=== PATIENT | female | born 1960 | race Caucasian/White ===

== ENCOUNTER 2017-11-26 00:38 | Emergency (ER) | payer SELFPAY ==
[~2017-11-26 00:38] MED LIST: ADDE30TA PO; TRAM50 PO
[2017-11-26 00:45] VITALS: BP 144/79; PULSE 98; RESP 16; TEMP 98.4; O2SAT 98
[2017-11-26] MEDS ORDERED: ABIL20TA5 PO (00:52)
[2017-11-26] MEDS ORDERED: PAXI10TA8 PO (00:52)
[2017-11-26] MEDS ORDERED: ADDE30TA PO (00:52)
--- NOTE | 2017-11-26 01:40 | PD ---
HPI Chief Complaint: Skin Problem Time Seen by Provider: 01:33 Travel History International Travel<30 days: No Contact w/Intl Traveler<30days: No Traveled to known affect area: No History of Present Illness HPI 57-year-old female presents for evaluation of 2 separate problems. Her first problem is chronic rash bilateral feet. Symptoms started 3 or 4 months ago on the plantar aspect of both feet. She reports dry flaky itchy and irritated skin. She was seen at a urgent care clinic 1 month ago where she was prescribed oral terbanifine benefiting as well as econazole nitrate however she reports that her symptoms have not improved. She reports that the econazole cream irritated her skin and so she does not use it much. Denies any history of eczema, psoriasis. In addition the patient is complaining of dysuria and increased urinary frequency which is been going on for the past 2 weeks. No aggravating or relieving factors. Denies abdominal pain, nausea or vomiting, flank pain, fevers or chills. No other complaints. [facility] Past Medical History ADD: Yes Social History Alcohol Use: No Tobacco Use: Yes (<1 PPD) Substance Use: No Allergies-Medications (Allergen,Severity, Reaction): Coded Allergies: No Known Allergies (Verified Adverse Reaction, Unknown, 11/26/17) Reported Meds & Prescriptions Reported Meds & Active Scripts Active Triamcinolone Topical (Triamcinolone Acetonide) 0.1% Cream 1 Applic TOPICAL BID 14 Days Clotrimazole Topical (Clotrimazole) 1% Soln 1 Applic TOPICAL BID 28 Days Bactrim DS (Sulfamethoxazole-Trimethoprim) 800-160 Mg Tab 1 Tab PO BID Reported Paxil (Paroxetine HCl) 10 Mg Tab 20 Mg PO DAILY Abilify (Aripiprazole) 20 Mg Tab 20 Mg PO DAILY Adderall (Amphetamine-Dextroamphetamine) 30 Mg Tab 30 Mg PO TID Avoid late evening doses. Space doses at least 4 to 6 hours if more than once/day dosing. Review of Systems Except as stated in HPI: all other systems reviewed are Neg Physical Exam Narrative GENERAL: Well-developed well-nourished female no acute distress SKIN: Warm and dry. Circular area of dry patchy irritated skin on the plantar aspect of both feet. There is no erythema or induration, no vesicles, no pustules, no petechiae, no purpura HEAD: Atraumatic. Normocephalic. EYES: Pupils equal and round. No scleral icterus. No injection or drainage. ENT: No nasal bleeding or discharge. Mucous membranes pink and moist. NECK: Trachea midline. No JVD. CARDIOVASCULAR: Regular rate and rhythm. No murmur appreciated. RESPIRATORY: No accessory muscle use. Clear to auscultation. Breath sounds equal bilaterally. GASTROINTESTINAL: Abdomen soft, non-tender, nondistended. Hepatic and splenic margins not palpable. MUSCULOSKELETAL: No obvious deformities. Data Data Last Documented VS Vital Signs Date Time Temp Pulse Resp B/P (MAP) Pulse Ox O2 Delivery O2 Flow Rate FiO2 11/26/17 00:45 98.4 98 16 144/79 (100) 98 Room Air Orders Orders Urinalysis - C+S If Indicated (11/26/17 01:37) Urine Culture (11/26/17 01:50) Ed Discharge Order (11/26/17 03:28) Labs Laboratory Tests Test 11/26/17 01:50 Urine Color YELLOW Urine Turbidity CLEAR Urine pH 6.0 Urine Specific [place] 1.026 Urine Protein TRACE mg/dL Urine Glucose (UA) NEG mg/dL Urine Ketones NEG mg/dL Urine Occult Blood TRACE Urine Nitrite NEG Urine Bilirubin NEG Urine Urobilinogen 2.0 MG/DL Urine Leukocyte Esterase MOD Urine RBC 16 /hpf Urine WBC 6 /hpf Urine Squamous Epithelial Cells 6 /hpf Urine Bacteria MANY /hpf Urine Mucus FEW /lpf Microscopic Urinalysis Comment CULTURE INDICATED MDM Medical Decision Making Medical Screen Exam Complete: Yes Emergency Medical Condition: Yes Medical Record Reviewed: Yes Differential Diagnosis Tinea pedis versus atopic dermatitis versus impetigo versus psoriasis Cystitis versus urethritis versus pyelonephritis Narrative Course The patient has a dry flaky itchy rash on the plantar aspect of both feet for several months of unknown etiology. She has not improved with the use of oral and topical antifungals. The plan would be to have her follow-up with a tennis coach for biopsy if symptoms do not persist. She will be given a prescription for a week or antifungal cream as well as topical steroid cream. In addition the patient has symptoms that would be suggestive of UTI. Urinalysis is consistent with UTI. The patient will be discharged with Bactrim. Diagnosis Primary Impression: Rash Additional Impression: UTI (urinary tract infection) Additional Instructions: Medication as prescribed. Follow-up with a tennis coach for definitive diagnosis. Return for any emergent medical conditions. Med/Other Pt SpecificInfo: Prescription(s) given Scripts Triamcinolone Topical (Triamcinolone Topical) 0.1% Cream 1 APPLIC TOPICAL BID for Inflammation for 14 Days, GM 0 Refills Prov: Oscar Layton MD 11/26/17 Clotrimazole Topical (Clotrimazole Topical) 1% Soln 1 APPLIC TOPICAL BID for Fungal Infection for 28 Days, #30 ML 0 Refills Prov: Oscar Layton MD 11/26/17 Sulfamethoxazole-Trimethoprim (Bactrim DS) 800-160 Mg Tab 1 TAB PO BID for Infection, #20 TAB 0 Refills Prov: Oscar Layton MD 11/26/17 Disposition: 01 DISCHARGE HOME Condition: Stable Osiel Avery Nov 26, 2017 01:40
[2017-11-26 02:20] LABS: BACTERIA, URINE MANY /hpf; BILIRUBIN, URINE NEG (NEG); BLOOD, URINE TRACE (NEG); GLUCOSE,URINE NEG (NEG); KETONE, URINE NEG (NEG); MUCUS URINE FEW /lpf (OCC); NITRITE,URINE NEG (NEG); SQUAMOUS EPITHELIAL CELL URINE 6 /hpf (0-5); URINE COLOR YELLOW (YELLW/STRAW); URINE LEUKOCYTE ESTERASE MOD (NEG)
[2017-11-26] MEDS ORDERED: BACT800T5 PO (03:25)
[2017-11-26] MEDS ORDERED: CLOTR1%T TOPICAL (03:25)
[2017-11-26] MEDS ORDERED: TRIA.1%T TOPICAL (03:25)
== END 2017-11-26 03:47 | disposition home or self-care (01) ==
LOC: NEPD 00:38
DX: R21 Rash and other nonspecific skin eruption (principal); N39.0 Urinary tract infection, site not specified; F17.200 Nicotine dependence, unspecified, uncomplicated
CPT/HCPCS: 81001; 87086; 99283